=== PATIENT | male | born 1995 | race Caucasian/White ===

== ENCOUNTER 2021-12-06 15:08 | Emergency (ER) | payer OTHER ==
[~2021-12-06] VITALS: Ht 185.4 cm; Wt 140.6 kg
--- NOTE | ~2021-12-06 | EKG ---
[facility] [address] [facility] [place], [place] [address] Draft EKG completed, results pending confirmation PATIENT NAME: MANDIECHELSEA SILVA Electrocardiogram DATE OF : [birth year] PHYSICIAN: PRELIMINARY REPORT #: [id number] REPORT IS CONFIDENTIAL AND NOT TO BE RELEASED WITHOUT AUTHORIZATION
== END 2021-12-06 20:16 | disposition home or self-care (01) ==
LOC: ED 15:08 → EDSEX 15:09 → ED 20:16
DX: U07.1 COVID-19 (principal); Z88.0 Allergy status to penicillin
CPT/HCPCS: 36415; 71045; 80053; 83735; 84484; 85025; 87502; 93005; 93010; 96374; 99285-25; A9270; C9803; J7030; U0003